=== PATIENT | male | born 1960 | race Caucasian/White ===

== ENCOUNTER 2023-08-07 07:31 | Day surgery (SDC) | payer OTHER ==
[~2023-08-07] VITALS: Ht 177.8 cm; Wt 79.2 kg
[~2023-08-07 07:31] MED LIST: Advil200 M1; CEFD300 PO; DEXL60CA3; DOXY100 PO; FLUSAL1005; GLUC500 PO; HYDACE5 PO; IBUP400 PO; RABE20; TRAZ50 PO; VITAMIN B122500 MCG PO; VITAMIN D325 MCG PO; [UNRECOGNIZED DRUG - OTHER]
[2023-08-07 09:49] VITALS: BP 108/79
== END 2023-08-07 09:57 | disposition home or self-care (01) ==
LOC: ORSCSDS 07:31
PROVIDERS: Internal Medicine Gastroenterology
PROC: 0DBK8ZX Excision of Ascending Colon, Via Natural or Artificial Opening Endoscopic, Diagnostic (ICD-10-PCS; principal; 2023-08-07 09:00)
PROC: 0DBL8ZX Excision of Transverse Colon, Via Natural or Artificial Opening Endoscopic, Diagnostic (ICD-10-PCS; principal; 2023-08-07 09:00)
DX: Z12.11 Encounter for screening for malignant neoplasm of colon (principal); D12.3 Benign neoplasm of transverse colon; K63.5 Polyp of colon; K57.30 Diverticulosis of large intestine without perforation or abscess without bleeding; Z79.899 Other long term (current) drug therapy
CPT/HCPCS: 88305; J2704; J7120

== ENCOUNTER 2025-03-26 20:16 | Emergency (ER) | payer OTHER ==
[~2025-03-26] VITALS: Ht 177.8 cm; Wt 81.7 kg
[2025-03-26 20:21] VITALS: BP 159/105
[2025-03-26 20:47] LABS: Hematocrit 46.3 % (37.0-53.0); Mean Corpuscular HGB 29.7 pg (26.0-34.0); Mean Corpuscular HGB Conc 34.6 g/dL (31.5-36.5); Mean Corpuscular Volume 86 fL (80-100); Mean Platelet Volume 9.4 fL (9.1-12.4); Platelet Count 137 K/mm3 (150-400); RDW Coefficient Variation 12.9 % (11.7-14.2); RDW Standard Deviation 39.9 fL (35.1-46.3); Red Blood Cell Count 5.38 M/mm3 (4.30-5.90); White Blood Cell Count 9.42 K/mm3 (4.00-11.30)
[2025-03-26 21:05] LABS: Albumin, Blood 3.6 g/dL (3.4-5.0); Albumin/Globulin Ratio 0.8 (0.8-1.8); Bilirubin, Total 0.6 mg/dL (0.1-1.0); Bun/Creatinine Ratio 31.7 (12.0-20.0); Calcium, Blood 10.2 mg/dL (8.5-10.1); Creatinine, Blood 1.04 mg/dL (0.60-1.20); Globulin, Blood 4.3 g/dL (2.2-4.0); Potassium, Blood 3.6 mmol/L (3.5-5.5); Total Protein, Blood 7.9 g/dL (6.4-8.2)
[2025-03-26 21:52] LABS: BAND PERCENT MAN 5 % (0-8); BASOPHILS PERCENT MAN 0 % (0-2); EOSINOPHILS PERCENT MAN 0 % (0-6); LYMPHOCYTES ABSOLUTE MAN 1.31 K/mm3 (0.84-5.20); LYMPHOCYTES PERCENT MAN 14 % (21-46); METAMYELOCYTE ABSOLUTE MAN 0.18 K/mm3 (0.00-0.00); METAMYELOCYTE PERCENT MAN 2 % (0-0); MONOCYTES ABSOLUTE MAN 0.37 K/mm3 (0.16-1.47); MONOCYTES PERCENT MAN 4 % (4-13); MYELOCYTE ABSOLUTE MAN 0.09 K/mm3 (0.00-0.00); MYELOCYTE PERCENT MAN 1 % (0-0); NEUTROPHILS ABSOLUTE MAN 7.44 K/mm3 (1.96-9.15); SEG NEUTROPHILS PERCENT MAN 74 % (41-73); TOTAL CELLS COUNTED 100
== END 2025-03-27 00:28 | disposition left against medical advice (07) ==
LOC: ER 20:16
PROVIDERS: Emergency Medicine
DX: Z53.21 Procedure and treatment not carried out due to patient leaving prior to being seen by health care provider (principal)
CPT/HCPCS: 80053; 85025; 93005; 93010

== ENCOUNTER 2025-04-28 01:22 | Day surgery (SDC) | payer OTHER ==
[2025-04-28] MEDS ORDERED: FILGRASTIM-AYOW 480 MCG/0.8 ML 0.8MLSYR SC SCH (06:00)
[2025-04-28 11:41] VITALS: BP 126/79
[2025-04-28] MEDS ORDERED: ONDA4ODT MM (12:13)
[2025-04-28] MEDS ORDERED: LORA10ER PO (12:13)
== END 2025-04-28 12:02 | disposition home or self-care (01) ==
LOC: ATC 01:22
DX: C34.90 Malignant neoplasm of unspecified part of unspecified bronchus or lung (principal); Z79.899 Other long term (current) drug therapy
CPT/HCPCS: 96372; Q5125

== ENCOUNTER 2025-04-29 01:36 | Day surgery (SDC) | payer OTHER ==
[~2025-04-29 01:36] MED LIST changes: +LORA10ER PO; +ONDA4ODT MM
[2025-04-29] MEDS ORDERED: FILGRASTIM-AYOW 480 MCG/0.8 ML 0.8MLSYR SC SCH (06:00)
[2025-04-29 13:35] VITALS: BP 124/68
== END 2025-04-29 13:39 | disposition home or self-care (01) ==
LOC: ATC 01:36
DX: C34.90 Malignant neoplasm of unspecified part of unspecified bronchus or lung (principal); Z79.899 Other long term (current) drug therapy
CPT/HCPCS: 96372; Q5125

== ENCOUNTER 2025-04-30 01:32 | Day surgery (SDC) | payer OTHER ==
[2025-04-30] MEDS ORDERED: FILGRASTIM-AYOW 480 MCG/0.8 ML 0.8MLSYR SC SCH (06:00)
[2025-04-30 11:28] VITALS: BP 128/70
== END 2025-04-30 11:33 | disposition home or self-care (01) ==
LOC: ATC 01:32
DX: C34.90 Malignant neoplasm of unspecified part of unspecified bronchus or lung (principal); Z79.899 Other long term (current) drug therapy
CPT/HCPCS: 96372; Q5125

== ENCOUNTER 2025-05-12 01:21 | Day surgery (SDC) | payer OTHER ==
[2025-05-12] MEDS ORDERED: NS 1,000 ML IV SCH (06:55)
[2025-05-12 15:15] VITALS: BP 125/82
== END 2025-05-12 16:21 | disposition home or self-care (01) ==
LOC: ATC 01:21
DX: C34.01 Malignant neoplasm of right main bronchus (principal); C77.0 Secondary and unspecified malignant neoplasm of lymph nodes of head, face and neck
CPT/HCPCS: 96360; J1642; J7030

== ENCOUNTER → 2025-06-17 | Outpatient (CLI) | payer OTHER ==
[2025-06-17 11:19] LABS: BASOPHILS ABSOLUTE AUTO 0.03 K/mm3 (0.00-0.23); BASOPHILS PERCENT AUTO 0 % (0-2); EOSINOPHILS ABSOLUTE AUTO 0.04 K/mm3 (0.00-0.68); EOSINOPHILS PERCENT AUTO 1 % (0-6); Hematocrit 24.3 % (37.0-53.0); Hemoglobin 7.9 g/dL (13.5-17.5); IMMATURE GRAN ABSOLUTE AUTO 0.02 K/mm3 (0.00-0.10); IMMATURE GRAN PERCENT AUTO 0 % (0-1); LYMPHOCYTES ABSOLUTE AUTO 0.63 K/mm3 (0.84-5.20); LYMPHOCYTES PERCENT AUTO 9 % (21-46); MONOCYTES ABSOLUTE AUTO 0.67 K/mm3 (0.16-1.47); MONOCYTES PERCENT AUTO 10 % (4-13); Mean Corpuscular HGB Conc 32.5 g/dL (31.5-36.5); Mean Corpuscular Volume 94 fL (80-100); NEUTROPHILS ABSOLUTE AUTO 5.55 K/mm3 (1.96-9.15); NEUTROPHILS PERCENT AUTO 80 % (41-73); NRBC ABSOLUTE 0.00 K/mm3 (0.00-0.02); NRBC Auto 0.0 /100 WBC (0.0-0.2); Platelet Count 288 K/mm3 (150-400); RDW Coefficient Variation 20.0 % (11.7-14.2); RDW Standard Deviation 67.6 fL (35.1-46.3)
[2025-06-17 11:38] LABS: Alanine Aminotransfer (ALT/SGP 18.0 U/L (12-78); Albumin, Blood 2.9 g/dL (3.4-5.0); Albumin/Globulin Ratio 0.8 (0.8-1.8); Anion Gap 10.0 mmol/L (3-11); Aspartate Aminotrans (AST/SGOT 12.0 U/L (12-37); Bilirubin, Total 0.8 mg/dL (0.1-1.0); Blood Urea Nitrogen 16.0 mg/dL (8-24); CO2, Blood 28.0 mmol/L (21-32); Calcium, Blood 8.7 mg/dL (8.5-10.1); Chloride, Blood 101.0 mmol/L (98-108); Creatinine, Blood 0.89 mg/dL (0.60-1.20); Globulin, Blood 3.8 g/dL (2.2-4.0); Glucose, Blood 100.0 mg/dL (70-99); Magnesium, Blood 2.1 mg/dL (1.6-2.4); Phosphorus, Blood 3.7 mg/dL (2.5-4.9); Potassium, Blood 4.5 mmol/L (3.5-5.5); Sodium, Blood 134.0 mmol/L (136-145); Total Protein, Blood 6.7 g/dL (6.4-8.2); Uric Acid, Blood 3.8 mg/dL (3.5-7.2)
== END | disposition home or self-care (01) ==
LOC: LAB SHORT 11:13 → LAB 11:13
PROVIDERS: Emergency Medicine
DX: R06.02 Shortness of breath (principal)
CPT/HCPCS: 80053; 83735; 84100; 84550; 85025

== ENCOUNTER 2025-06-28 00:56 | Day surgery (SDC) | payer OTHER ==
[2025-06-28] MEDS ORDERED: NS 250 ML IV SCH (06:45)
[2025-06-28 09:09] VITALS: BP 104/64
[2025-06-28 09:32] VITALS: BP 108/69
[2025-06-28 10:34] VITALS: BP 126/83
[2025-06-28 11:09] VITALS: BP 112/83
== END 2025-06-28 11:16 | disposition home or self-care (01) ==
LOC: ATC 00:56
DX: C34.01 Malignant neoplasm of right main bronchus (principal); D63.0 Anemia in neoplastic disease; Z79.899 Other long term (current) drug therapy
CPT/HCPCS: 36415; 36430; 86850; 86900; 86901; 86923; J1642; J7050; P9016